=== PATIENT | female | born 1965 | race Caucasian/White ===

== ENCOUNTER 2021-08-16 08:27 | Inpatient (IN) ==
--- NOTE | 2021-08-02 13:08 | PAT Medication Instructions ---
Medication Instructions Date of Service August 02, 2021 Home Medications acetaminophen 500 mg capsule 1,000 mg PO Q6H PRN ascorbic acid (vitamin C) 250 mg tablet (Vitamin C) 250 mg PO QAM baclofen 10 mg tablet 10 mg PO HS cholecalciferol (vitamin D3) 25 mcg (1,000 unit) capsule (Vitamin D3) 25 mcg PO HS coQ10 (ubiquinol) 200 mg capsule 200 mg PO QAM famotidine 20 mg tablet 20 mg PO QAM ibuprofen 200 mg capsule 400 - 600 mg PO Q6H PRN melatonin 5 mg capsule 5 mg PO HS multivitamin 1 tab PO QAM omeprazole 20 mg capsule,delayed release 20 mg PO DAILY PRN oxycodone 10 mg tablet 10 mg PO Q8H PRN topiramate 100 mg tablet (Topamax) 150 mg PO QAM Continue as directed omeprazole 20 mg capsule,delayed release 20 mg PO DAILY PRN (if needed) ASK your surgeon for instructions ibuprofen 200 mg capsule 400 - 600 mg PO Q6H PRN STOP taking 2 weeks before surgery coQ10 (ubiquinol) 200 mg capsule 200 mg PO QAM DO NOT take the morning of surgery ascorbic acid (vitamin C) 250 mg tablet (Vitamin C) 250 mg PO QAM multivitamin 1 tab PO QAM Take morning of surgery With a small sip of water, OTHERWISE NOTHING TO EAT OR DRINK AFTER MIDNIGHT: acetaminophen 500 mg capsule 1,000 mg PO Q6H PRN (okay to take up to 4 hours prior to surgery if needed) famotidine 20 mg tablet 20 mg PO QAM oxycodone 10 mg tablet 10 mg PO Q8H PRN (okay to take up to 4 hours prior to surgery if needed) topiramate 100 mg tablet (Topamax) 150 mg PO QAM Take evening before surgery acetaminophen 500 mg capsule 1,000 mg PO Q6H PRN (if needed) baclofen 10 mg tablet 10 mg PO HS cholecalciferol (vitamin D3) 25 mcg (1,000 unit) capsule (Vitamin D3) 25 mcg PO HS melatonin 5 mg capsule 5 mg PO HS oxycodone 10 mg tablet 10 mg PO Q8H PRN (if needed) Other Notes If you have any questions please call us at [phone] or [phone] or [phone] or [phone]
--- NOTE | 2021-08-03 09:40 | Anesthesiology Consultation ---
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 Wears mask when required. No known Covid positive contacts or Covid related symptoms. No known Covid infection in the past 90 days. Pt is vaccinated for Covid. Preop Covid testing scheduled 08/14/21 = will await results. Educated on importance of self quarantining, social distancing and wearing mask in public for the patient one week prior to surgery and after Covid testing done Teaching & Discussion Pre-Anesthesia Teaching/Discussion Notes: Instructed NPO after midnight before surgery,except medications with 15 cc of water. Medication instructions provided according to the PAT guidelines. History Surgery Operation Date: 08/16/21 09:55 Proposed Procedures p L4-L5 Decompression Fusion Spinal Cord Monitoring - Andres Elam DO Height/Weight Height: 5 ft 1 in Weight: 62.5 kg Allergies Allergy/AdvReac Type Severity Reaction Status Date / Time erythromycin base Allergy Mild rash Verified 07/31/21 11:14 Iodinated Contrast Media Allergy Mild Hives Verified 07/31/21 11:51 ciprofloxacin [From Cipro] Allergy Unknown Hives Verified 07/31/21 11:14 NSAIDS (Non-Steroidal Allergy Unknown STOMACH Verified 07/31/21 11:14 Anti-Inflamma ISSUES Medications Home Medications Medication Instructions Recorded Confirmed Last Taken acetaminophen 500 mg capsule 1,000 mg PO Q6H PRN 07/31/21 07/31/21 Unknown ascorbic acid (vitamin C) 250 mg 250 mg PO QAM 07/31/21 07/31/21 Unknown tablet (Vitamin C) baclofen 10 mg tablet 10 mg PO HS 07/31/21 07/31/21 Unknown cholecalciferol (vitamin D3) 25 25 mcg PO HS 07/31/21 07/31/21 Unknown mcg (1,000 unit) capsule (Vitamin D3) coQ10 (ubiquinol) 200 mg capsule 200 mg PO QAM 07/31/21 07/31/21 Unknown famotidine 20 mg tablet 20 mg PO QAM 07/31/21 07/31/21 Unknown ibuprofen 200 mg capsule 400 - 600 mg PO Q6H PRN 07/31/21 07/31/21 Unknown melatonin 5 mg capsule 5 mg PO HS 07/31/21 07/31/21 Unknown multivitamin 1 tab PO QAM 07/31/21 07/31/21 Unknown omeprazole 20 mg capsule,delayed 20 mg PO DAILY PRN 07/31/21 07/31/21 Unknown release oxycodone 10 mg tablet 10 mg PO Q8H PRN 07/31/21 07/31/21 Unknown topiramate 100 mg tablet (Topamax) 150 mg PO QAM 07/31/21 07/31/21 Unknown Past Medical History Medical History Cancer BASAL CELL-SKIN CANCER S/p removal (Mohns procedure) Chronic back pain GERD (gastroesophageal reflux disease) Not well controlled - uses Pepcid and PPI PRN History of IBS Intermittent flare ups - no current issues Migraine Exercise / Class Metabolic Activity II 4-5 Yardwork/Stairs/Walk up hill (one flight of stairs - no chest pain or SOB ) Past Family History Family History Brother Family history of reaction to anesthesia AGGRESSIVE, COMBATITIVE Past Surgical History Surgical History H/O oophorectomy H/O right knee surgery MULTIPLE History of bilateral tubal ligation History of cholecystectomy History of colonoscopy History of esophagogastroduodenoscopy (EGD) History of herniorrhaphy Past Anesthesia History No Hx of Anesthesia Complications and No Family Hx of Anesthesia Complications (with exception to brother- combative post op ) History of PONV No Hx of PONV and No Hx of Motion Sickness Social History Smoking Status: Current every day smoker Do You Dip or Chew Tobacco: No Smoking End Date: 15-20 CIGS A DAY Hx Alcohol Use: Yes Alcohol type: beer and wine alcohol intake frequency: 0-2 drinks per day (3-5 drinks/day ) Hx Substance Use: No Review of Systems Possible allergy issues- post nasal drip- weather dependent Patient denies chest pain, shortness of breath, dyspnea on exertion, cough, wheezing, palpitations. No hx of seizures, stroke, AL, apnea/snoring. No hx of blood clots or blood transfusions Physical Exam Vital Signs VITALS BP 154/82 P 76 TEMP 98.8 SP02 99% RESP 16 Constitutional no acute distress ENMT Mouth: no TMJ clicking Thyromental Distance: < 3.5 Finger Breadths (3.0) Mallampati Class: III Neck + limited neck extension (significant ) Respiratory normal respiratory effort; no respiratory distress Auscultation: lungs clear to auscultation bilaterally; no wheezes Cardiovascular Rate/Rhythm: regular rate and regular rhythm Heart Sounds: no murmur Vessels: no carotid bruit Musculoskeletal Extremities: extremities normal to inspection Psychiatric Orientation: alert Lab Results Anesthesia Preop Results Results Anesthesia Widget: WBC 5.07 K/uL (4.8-10.8) 08/03/21 Hgb 15.1 g/dL (12.0-16.0) 08/03/21 Hct 42.7 % (37-47) 08/03/21 Plt 275 K/uL (130-400) 08/03/21 Na 136 mmol/L (136-145) 08/03/21 K 4.3 mmol/L (3.5-5.1) 08/03/21 Cl 107 mmol/L (98-107) 08/03/21 CO2 26 mmol/L (21-32) 08/03/21 BUN 11 mg/dl (7-18) 08/03/21 Creat 0.80 mg/dl (0.6-1.2) 08/03/21 Glucose Level 88 mg/dl (70-99) 08/03/21 PT 9.8 Seconds (9.0-12.0) 08/03/21 PTT 26.8 Seconds (21.0-31.0) 08/03/21 INR 1.0 (0.9-1.1) 08/03/21 Urine Color Yellow 08/03/21 Urine Appearance Clear (Clear) 08/03/21 Urine pH 7.5 (4.5-7.5) 08/03/21 Urine Specific [place] 1.004 (1.000-1.030) 08/03/21 Urine Protein Negative (Negative) 08/03/21 Urine Glucose (UA) Negative (Negative) 08/03/21 Urine Ketones Negative (Negative) 08/03/21 Urine Blood Negative (Negative) 08/03/21 Urine Nitrite Negative (Negative) 08/03/21 Urine Bilirubin Negative (Negative) 08/03/21 Urine Urobilinogen Negative (Negative) 08/03/21 Urine Leukocyte Esterase Negative (Negative) 08/03/21 Blood Type O Positive 08/03/21 Antibody Screen NEGATIVE 08/03/21 Testing Electrocardiogram Date: 08/03/21 Findings: + NSR @ (72bpm ) Normal EKG per cardio. Chest X-Ray Date: 08/03/21 Findings: + NAD Emphysematous change with no active disease in the chest.
[~2021-08-16 08:27] MED LIST: ACETAMINOPHEN 500 MG TAB PO SCH; CeleBREX 200 MG CAP PO SCH; DEXAMETHASONE SOD INJ 4 MG/ML VIAL ONE; GABAPENTIN 600 MG DOSE PO SCH; GLYCOPYRROLATE 0.2 MG/ML VIAL ONE; LR 15ML/HR IV SCH; NEOSTIGMINE METHYLSULFATE 1 MG/ML 10ML VIAL ONE; ONDANSETRON INJ 2 MG/ML 2 ML VIAL ONE; PROPOFOL IV EMULSION 10 MG/ML 20 ML VIAL IV ONE; ROCURONIUM BROMIDE 10 MG/ML 5 ML VIAL IV ONE; ceFAZolin 1000MG 1,000 MG/7.5 ML SYR IV SCH; fentaNYL citrate 100 MCG/2 ML VIAL ONE
[2021-08-16] MEDS ORDERED: BUPIVACAINE 0.5 % 5 MG/1 ML MPF 30ML VIAL ONE (09:21)
[2021-08-16] MEDS ORDERED: EPINEPHrine INJ 1 MG/ML AMP ONE (09:21)
--- NOTE | 2021-08-16 09:28 | History & Physical Bridge Note ---
Date of Service August 16, 2021 History & Physical Bridge Note I have examined the patient, reviewed the History & Physical and in the interval since the performance of the History & Physical I have noted the following changes of clinical significance: no changes noted
[2021-08-16] MEDS ORDERED: ATROPINE SULFATE 0.1 MG/ML 10ML SYR IV PRN (09:29)
[2021-08-16] MEDS ORDERED: ePHEDrine sulfate 50 MG/ML AMP IV PRN (09:29)
[2021-08-16] MEDS ORDERED: PROMETHAZINE HCL 6.25 MG in SODIUM CHLORIDE 0.9% 50 ML IV PRN (09:29)
[2021-08-16] MEDS ORDERED: ONDANSETRON INJ 2 MG/ML 2 ML VIAL IV PRN ×2 (09:29→14:17)
--- NOTE | 2021-08-16 09:31 | History & Physical Report ---
Date of Service August 16, 2021 Assessment & Plan (1) Neurogenic claudication due to lumbar spinal stenosis: Plan: L4-L5 decompression fusion History of Present Illness Chief Complaint: Back and bilateral leg pain Primary Care Provider: Nerissa Justin PA-C This is a 56-year-old female presents with current persistent back and bilateral leg pain. Full course of nonoperative care she is here for surgical invention. Allergies Allergy/AdvReac Type Severity Reaction Status Date / Time erythromycin base Allergy Mild rash Verified 08/16/21 08:55 Iodinated Contrast Media Allergy Mild Hives Verified 08/16/21 08:55 ciprofloxacin [From Cipro] Allergy Unknown Hives Verified 08/16/21 08:55 NSAIDS (Non-Steroidal Allergy Unknown STOMACH Verified 08/16/21 08:55 Anti-Inflamma ISSUES Home Medications Medication Instructions Recorded Confirmed Type acetaminophen 500 mg capsule 1,000 mg PO Q6H PRN 07/31/21 08/16/21 History ascorbic acid (vitamin C) 250 mg 250 mg PO QAM 07/31/21 08/16/21 History tablet (Vitamin C) baclofen 10 mg tablet 10 mg PO HS 07/31/21 08/16/21 History cholecalciferol (vitamin D3) 25 25 mcg PO HS 07/31/21 08/16/21 History mcg (1,000 unit) capsule (Vitamin D3) coQ10 (ubiquinol) 200 mg capsule 200 mg PO QAM 07/31/21 08/16/21 History famotidine 20 mg tablet 20 mg PO QAM 07/31/21 08/16/21 History ibuprofen 200 mg capsule 400 - 600 mg PO Q6H PRN 07/31/21 08/16/21 History melatonin 5 mg capsule 5 mg PO HS 07/31/21 08/16/21 History multivitamin 1 tab PO QAM 07/31/21 08/16/21 History omeprazole 20 mg capsule,delayed 20 mg PO DAILY PRN 07/31/21 08/16/21 History release oxycodone 10 mg tablet 10 mg PO Q8H PRN 07/31/21 08/16/21 History topiramate 100 mg tablet (Topamax) 150 mg PO QAM 07/31/21 08/16/21 History Past Med/Surg History Medical History Cancer BASAL CELL-SKIN CANCER S/p removal (Mohns procedure) Chronic back pain GERD (gastroesophageal reflux disease) Not well controlled - uses Pepcid and PPI PRN History of IBS Intermittent flare ups - no current issues Migraine Surgical History H/O oophorectomy H/O right knee surgery MULTIPLE History of bilateral tubal ligation History of cholecystectomy History of colonoscopy History of esophagogastroduodenoscopy (EGD) History of herniorrhaphy Family History Brother Family history of reaction to anesthesia AGGRESSIVE, COMBATITIVE Social History (Updated 07/31/21 @ 11:43 by Chelsie Borja RN) Smoking Status: Current every day smoker Smoking End Date: 15-20 CIGS A DAY; Second Hand Exposure: Yes (PARENTS SMOKED); Do You Dip or Chew Tobacco: No; Hx Alcohol Use: Yes Alcohol type: beer and wine Hx Substance Use: No Preferred Language: German Communication Ability: Effective Senior Principal Required: No Beliefs That Will Affect Care: None Current Living Situation: Spouse current occupational status: employed current occupation: [employer]-(OFF WORK SINCE 05/2021 DUE TO BACK) Other Information That Helps Us Care for You: No Feels Safe at Home: Yes Safety Concerns: Feels Safe At This Time Assistive Devices: Glasses Physical Exam Physical Exam: Patient is alert and oriented Heart regular rhythm Lungs clear to auscultation Results & Data ([facility]) Vital Signs (Past 12 Hours) Vital Signs Temp Pulse Resp BP Pulse Ox 08/16/21 09:00 36.9 C 71 20 154/82 H 98
[2021-08-16] MEDS ORDERED: FLOSEAL HEMOSTATIC MATRIX 10ML TOP ONE (10:48)
--- NOTE | 2021-08-16 11:48 | Operative Report ---
Post Operative Report Pre & Post Diagnosis Operation Date: 08/16/21 09:55 Pre-Op Diagnosis: Lumbar spinal stenosis with neurogenic claudication Lumbar spondylolisthesis Post-Op Diagnosis: Same I identified the patient and participated in the time-out.: Yes Procedure Operation Date: 08/16/21 09:55 Actual Procedures #1 lumbar decompression with bilateral medial facetectomies and foraminotomies L3-4 and L4-5 per #2 posterior spinal fusion L4-5 per #3 placement posterior instrumentation L4-5 per #4 interbody fusion L4-5 per #5 placement peek cage 12 x 22 mm at L4-5. #6 placement locally harvested morselized autograft in the posterior gutters. #7 placement infuse collagen sponge combined with Vitoss in the interbody space and posterior lateral gutters. Surgeon Andres Elam, Voice Writing Reporter [facility] Estimated Blood Loss 150 Findings Consistent with Post-Op Diagnosis Specimens None Indications This is a 56-year-old female presents above-mentioned diagnosis at the course of nonoperative care is here for the procedure. Description of Procedure Patient was met with identified informed consent obtained. Patient was then taken to the operative suite underwent a patient placed in a prone position on a Mao table top Wes frame. All bony prominences well-padded eyes inspected to ensure no external pressure placed upon the. This point lumbar spine was prepped and draped in a sterile fashion. Sharp dissection with the assistance of Bovie cautery was performed down to and exposing the lamina and transverse processes of L4 and L5 bilaterally. From caudal cephalad fashion complete laminectomy of L4 and partial laminectomy of L3 was performed including dre ateral medial facetectomies and foraminotomies addressing severe spinal stenosis. Pedicle screws were then placed in L4-L5 bilaterally with assistance of fluoroscopy and appropriate sized carlos placed. By way of a transforaminal approach and left complete discectomy of L4-5 was performed endplates curetted to subcortical being bone and a 12 x 22 mm peek cage filled with I factor tapped in position. The rods then compressed locked in final position bilaterally. The transverse processes of L4 and L5 burred to subcortical bleeding bone. I factor combined with Vitoss and locally harvested morselized autograft was then placed in the posterior gutters. 15 round LETTY drain inserted. Incision was then closed with 1 Vicryl the fascia 2-0 Vicryl subcutaneously and 4 Monocryl for final skin closure. Steri-Strip sterile dressings placed. Patient waken taken to PACU stable condition. Please note spinal cord monitoring was utilized at the procedure no changes noted. Lastly [facility] Olmstead was present at the entire surgeon while the patient positioning complex portions of the surgery and final skin closure. I attest to the content of the Intraoperative Record and any orders documented therein. Any exceptions are noted below.
[2021-08-16] MEDS: fentaNYL citrate 100 MCG/2 ML VIAL IV PRN ×2 (12:09→12:14)
[2021-08-16] MEDS: HYDROmorphone INJ 1 MG/ML SYRINGE IV PRN ×5 (12:19→23:20)
[2021-08-16] MEDS ORDERED: ONDANSETRON 4 MG OD TAB PO PRN (14:17)
[2021-08-16] MEDS ORDERED: hydrOXYzine HCl 25 MG TAB PO PRN (14:17)
[2021-08-16] MEDS ORDERED: HYDROmorphone INJ 0.5 MG/0.5 ML SYR IV PRN (14:17)
[2021-08-16] MEDS ORDERED: METOCLOPRAMIDE HCL INJ 5 MG/ML 2 ML VIAL IV PRN (14:17)
[2021-08-16] MEDS ORDERED: ALUMINUM/MAGNESIUM SUSP 30 ML UDC PO PRN (14:17)
[2021-08-16] MEDS ORDERED: MAGNESIUM HYDROXIDE SUSP 30 ML UDC PO PRN (14:17)
[2021-08-16] MEDS ORDERED: PROMETHAZINE HCL 12.5 MG in SODIUM CHLORIDE 0.9% 50 ML IV PRN (14:17)
[2021-08-16] MEDS ORDERED: LORazepam 0.5 MG/1 ML VIAL IV PRN (14:17)
[2021-08-16] MEDS ORDERED: bisacodyL 10 MG SUPP PR PRN (14:17)
[2021-08-16] MEDS ORDERED: SOD PHOSPHATE/SOD BIPHOSPHATE ENEMA 132 ML BTL PR PRN (14:17)
[2021-08-16] MEDS ORDERED: traMADol HCL 50 MG TABLET PO PRN (14:17)
[2021-08-16] MEDS ORDERED: ACETAMINOPHEN 1,000 MG/100 ML VIAL IV PRN (14:17)
[2021-08-16] MEDS ORDERED: FAMOTIDINE 20 MG TAB PO PRN (14:17)
[2021-08-16] MEDS ORDERED: DO NOT ADMINISTER PNEUMOCOCCAL VACCINE PRN (14:17)
[2021-08-16] MEDS ORDERED: ACETAMINOPHEN 500 MG TAB PO PRN (14:17)
[2021-08-16] MEDS ORDERED: DO NOT ADMINISTER FLU VACCINE PRN (14:17)
[2021-08-16] MEDS ORDERED: diphenhydrAMINE Capsule 25 MG CAP PO PRN (14:17)
[2021-08-16] MEDS ORDERED: LORazepam 0.5 MG TAB PO PRN (14:17)
[2021-08-16] MEDS ORDERED: NALOXONE HCL 0.4 MG/1 ML VIAL/CARP IV PRN (14:17)
[2021-08-16] MEDS ORDERED: MELATONIN 3 MG TAB PO PRN (14:25)
[2021-08-16] MEDS ORDERED: PANTOprazole 40 MG TAB PO PRN (14:26)
[2021-08-16] MEDS: LACTATED RINGER'S 1,000 ML IV SCH (14:56)
[2021-08-16] MEDS: oxyCODONE HCL IR 5 MG TAB (IMMEDIATE RELEASE) PO PRN (14:56)
--- NOTE | 2021-08-16 15:04 | Consultation ---
Date of Consultation August 16, 2021 Assessment & Plan (1) Neurogenic claudication due to lumbar spinal stenosis: Status post L4-L5 lumbar decompression fusion by Dr. Elam, POD #0 EBL 150 mL; LETTY drain 170 mL Tolerated procedure well Pain/wound management per orthopedics Activity and therapy as directed by orthopedics Encourage incentive spirometry Monitor hemoglobin, preop 15.1 Alcohol abuse Patient admits to in taking 5-6 light beers nightly since May Last drink was last evening AWSS as per protocol, as needed IV Ativan, oral thiamine and folic acid Tobacco abuse smoking cessation encouraged declines nicotine patch at this point Migraine continue topamax no current VAZQUEZ Gerd continue PPI and pepcid Dispo: per primary PCP: Nerissa Justin PA-C FULL CODE Pt was seen and examined in collaboration with Dr. Escobar, please see addendum Thank you for this consultation. We will follow the patient with you during their hospital stay. You can reach a member of the [facility] Hospitalist Team 24/06 via hospitalist role on tiger text. (2) Alcohol abuse: (3) Post-operative state: (4) Tobacco use: Supervising Physician Co-Signing Physician Notes I have seen and examined the patient and have discussed the case with the provider above. I agree with the assessment and plan as stated. 56-year-old female with chronic lower back pain status post L4-L5 decompression with fusion by Dr. Elam today. She was up and walking to the bathroom and is reporting some expected pain. She confirms drinking 5-6 alcoholic drinks daily. We discussed symptoms of alcohol withdrawal and treatments available to her if she were to experience her symptoms. She verbalized understanding. Physical exam as above. Agree with plan as above. Thank you for this consultation. DO Shawn History of Present Illness Requesting Physician: Dr. Elam Reason for Consultation: Post op medical management Attending Physician: Andres Elam DO History of Present Illness This is a 56-year-old female who has significant past medical history of migraine, tobacco use, alcohol abuse, diastolic dysfunction, GERD, lumbar spinal stenosis who presents for elective lumbar procedure by Dr. Elam. She underwent L4-L5 decompression fusion and tolerated procedure well. She currently complains of incisional back pain as well as pain to her right leg. Prior to surgery she felt she had to constantly move to get comfortable. She continues to feel this way, although somewhat improved. She denies any fever, chills, sweats, lightheadedness, dizziness, chest pain, shortness breath, cough, nausea, vomiting, abdominal pain. Of significance she does have history of migraine which is controlled with Topamax. She also admits to significant alcohol use since May due to back pain. She states she used alcohol to help calm her. She admits to approximately 5-6 alcoholic beverages/light beers nightly. Her last drink was last evening. Allergies Allergy/AdvReac Type Severity Reaction Status Date / Time erythromycin base Allergy Mild rash Verified 08/16/21 08:55 Iodinated Contrast Media Allergy Mild Hives Verified 08/16/21 08:55 ciprofloxacin [From Cipro] Allergy Unknown Hives Verified 08/16/21 08:55 NSAIDS (Non-Steroidal Allergy Unknown STOMACH Verified 08/16/21 08:55 Anti-Inflamma ISSUES Home Medications Medication Instructions Recorded Confirmed Type acetaminophen 500 mg capsule 1,000 mg PO Q6H PRN 07/31/21 08/16/21 History ascorbic acid (vitamin C) 250 mg 250 mg PO QAM 07/31/21 08/16/21 History tablet (Vitamin C) baclofen 10 mg tablet 10 mg PO HS 07/31/21 08/16/21 History cholecalciferol (vitamin D3) 25 25 mcg PO HS 07/31/21 08/16/21 History mcg (1,000 unit) capsule (Vitamin D3) coQ10 (ubiquinol) 200 mg capsule 200 mg PO QAM 07/31/21 08/16/21 History famotidine 20 mg tablet 20 mg PO QAM 07/31/21 08/16/21 History ibuprofen 200 mg capsule 400 - 600 mg PO Q6H PRN 07/31/21 08/16/21 History melatonin 5 mg capsule 5 mg PO HS 07/31/21 08/16/21 History multivitamin 1 tab PO QAM 07/31/21 08/16/21 History omeprazole 20 mg capsule,delayed 20 mg PO DAILY PRN 07/31/21 08/16/21 History release oxycodone 10 mg tablet 10 mg PO Q8H PRN 07/31/21 08/16/21 History topiramate 100 mg tablet (Topamax) 150 mg PO QAM 07/31/21 08/16/21 History Patient History Medical History Cancer BASAL CELL-SKIN CANCER S/p removal (Mohns procedure) Chronic back pain GERD (gastroesophageal reflux disease) Not well controlled - uses Pepcid and PPI PRN History of IBS Intermittent flare ups - no current issues Migraine Surgical History H/O oophorectomy H/O right knee surgery MULTIPLE History of bilateral tubal ligation History of cholecystectomy History of colonoscopy History of esophagogastroduodenoscopy (EGD) History of herniorrhaphy Family History Brother Family history of reaction to anesthesia AGGRESSIVE, COMBATITIVE Father Stomach cancer Coronary heart disease Hx of CABG Mother Hx of CABG Heart disease Social History (Updated 08/16/21 @ 15:22 by Carrie Lunsford PA-C) Smoking Status: Current every day smoker Smoking End Date: 15-20 CIGS A DAY; Second Hand Exposure: Yes (PARENTS SMOKED); Do You Dip or Chew Tobacco: No; Hx Alcohol Use: Yes Alcohol type: beer and wine Alcohol type Comment: Beer Alcohol Intake Frequency Comment: 5-6 nightly since May Hx Substance Use: No Preferred Language: Khmer Communication Ability: Effective Law Writer Required: No Beliefs That Will Affect Care: None Current Living Situation: Spouse current occupational status: employed current occupation: [employer]-(OFF WORK SINCE 05/2021 DUE TO BACK) Other Information That Helps Us Care for You: No Feels Safe at Home: Yes Safety Concerns: Feels Safe At This Time Assistive Devices: Walker Review of Systems Review of Systems: All systems reviewed & are unremarkable except as noted in HPI & below Physical Exam Physical Exam: Constitutional: WD/WN, vitals as above, NAD, sitting up in bed, pleasant, conversing easily Head: Normocephalic, Atraumatic Eyes: PERRL, conjunctivae normal, anicteric sclerae ENMT: external ear and nose normal, oropharynx normal Neck: trachea midline, no thyromegaly normal visual inspection Respiratory: normal respiratory effort, lungs clear to auscultation, no wheeze, rales, rhonchi. Normal insp/exp effort, no accessory muscle use Cardiovascular: RRR, no murmur, no edema Vessels: no JVD or carotid bruit Chest: normal inspection of chest Abdomen: normal bowel sounds, soft, nontender, no hepatosplenomegaly Musculoskeletal: no cyanosis or clubbing, extremity active range of motion x4, strength 5 out of 5, lumbar dressing CDI, LETTY drain with serosanguineous drainage Skin: no rashes, warm and dry normal turgor Neurologic: PERRL, EOMI, accommodation nl, no face palsy, no dysarthria CN's II-XI intact bilaterally and moves all extremities Psychiatric: A+Ox3, euthymic affect Lymphatic: no cervical or axillary lymphadenopathy : deferred Results & Data ([facility]) Vital Signs (Past 12 Hours) Vital Signs Temp Pulse Pulse Pulse Resp BP BP 08/16/21 14:44 36.4 C L 67 18 133/81 08/16/21 14:15 36.4 C L 71 17 133/85 08/16/21 14:09 36.4 C L 70 16 145/80 H 08/16/21 13:30 78 19 121/59 L 08/16/21 13:20 87 16 127/75 08/16/21 13:10 61 18 110/61 08/16/21 13:00 75 18 136/81 08/16/21 12:50 36.4 C L 61 20 142/79 H 08/16/21 12:40 58 L 20 133/79 08/16/21 12:30 36.2 C L 69 14 141/75 H 08/16/21 12:20 61 12 135/57 L 08/16/21 12:10 60 20 153/86 H 08/16/21 12:02 36.0 C L 77 12 167/77 H 08/16/21 09:00 36.9 C 71 20 154/82 H Pulse Ox 08/16/21 14:44 97 08/16/21 14:15 96 08/16/21 14:09 95 08/16/21 13:30 94 08/16/21 13:20 94 08/16/21 13:10 99 08/16/21 13:00 98 08/16/21 12:50 96 08/16/21 12:40 100 08/16/21 12:30 95 08/16/21 12:20 100 08/16/21 12:10 100 08/16/21 12:02 100 08/16/21 09:00 98 Laboratory Results Preop lab work on 08/03/2021 3 BC 5.07, H&H 15.1 and 42.7, platelet 275 Sodium 136, K4.3, chloride 107, BUN 19, creatinine 0.8 Urinalysis negative Diagnostic Findings Lumbar Spine X-Ray 08/16/21 09:55 FL lumbar spine 2-3V CLINICAL HISTORY: L4-5 DFI COMPARISON STUDY: None. FLUOROSCOPY TIME: 18 seconds. FLUOROSCOPIC IMAGES: 2 FINDINGS: Fluoroscopy was provided during L4-L5 discectomy, posterior decompress ion and bilateral pedicle screw fusion. Hardware is intact. IMPRESSION: Fluoroscopy provided during L4-L5 discectomy, posterior decompression and bilateral pedicle screw fusion. ACT 112: Negative or not required by law. Electronically signed by: Angelo Ponce M.D. 08/16/2021 3:27 PM Medications Administered Medication List Acetaminophen (Acetaminophen 500 Mg Tab) 1,000 mg PO PREOP JUN Stop: 08/16/21 18:00 Last Admin: 08/16/21 09:14 Dose: 1,000 mg Documented by: [id number] Celecoxib (Celebrex 200 Mg Cap) 200 mg PO PREOP JUN Stop: 08/16/21 18:00 Last Admin: 08/16/21 09:15 Dose: Not Given Documented by: [id number] Fentanyl Citrate (Fentanyl Citrate 100 Mcg/2 Ml Vial) 25 mcg IV Q5M PRN PRN Reason: PACU Use Only-Pain Stop: 08/16/21 17:29 Last Admin: 08/16/21 12:14 Dose: 50 mcg Documented by: [id number] Admin: 08/16/21 12:09 Dose: 50 mcg Documented by: [id number] Gabapentin (Gabapentin 600 Mg Dose) 600 mg PO PREOP JUN Stop: 08/16/21 18:00 Last Admin: 08/16/21 09:14 Dose: 600 mg Documented by: [id number] Hydromorphone HCl (Hydromorphone Inj 1 Mg/Ml Syringe) 0.25 mg IV Q5M PRN PRN Reason: PACU Use Only-Pain Stop: 08/16/21 17:29 Last Admin: 08/16/21 12:45 Dose: 0.25 mg Documented by: [id number] Admin: 08/16/21 12:24 Dose: 0.5 mg Documented by: [id number] Admin: 08/16/21 12:19 Dose: 0.5 mg Documented by: [id number] Lactated Ringer's (Lr) 1,000 mls @ 15 mls/hr IV .Q24H JUN Stop: 08/17/21 05:59 Last Infusion: 08/16/21 09:52 Dose: 15 mls/hr Documented by: [id number] Admin: 08/16/21 09:14 Dose: 15 mls/hr Documented by: [id number] Cefazolin Sodium (Ancef 1000mg) 1,000 mg in 7.5 mls @ 2.5 mls/min IV PREOP JUN; Protocol Stop: 08/16/21 18:00 Last Admin: 08/16/21 10:12 Dose: 2.5 mls/min Documented by: [id number] Lactated Ringer's (Lr) 1,000 mls @ 100 mls/hr IV .Q10H JUN Stop: 09/15/21 14:16 Last Admin: 08/16/21 14:56 Dose: 100 mls/hr Documented by: [id number] Oxycodone HCl (Oxycodone Hcl Ir 5 Mg Tab (Immediate Release)) 5 - 10 mg PO Q4H PRN PRN Reason: Pain & Pre PT Stop: 08/30/21 14:16 Last Admin: 08/16/21 14:56 Dose: 10 mg Documented by: [id number] Discontinued Medications Bupivacaine HCl (Bupivacaine 0.5 % 5 Mg/1 Ml Mpf 30ml Vial) Confirm Administered Dose 30 ml .ROUTE .STK-MED ONE Stop: 08/16/21 09:22 Last Admin: 08/16/21 10:51 Dose: 25 ml Documented by: [id number] Cefazolin Sodium (Cefazolin 250 Mg/Ml 1 Gm Vial) Confirm Administered Dose 1,000 mg .ROUTE .STK-MED ONE Stop: 08/16/21 09:22 Last Admin: 08/16/21 10:53 Dose: 1,000 mg Documented by: [id number] Epinephrine HCl (Epinephrine Inj 1 Mg/Ml Amp) Confirm Administered Dose 1 mg .ROUTE .STK-MED ONE Stop: 08/16/21 09:22 Last Admin: 08/16/21 10:52 Dose: 0.15 mg Documented by: [id number] Miscellaneous ( Floseal Hemostatic Matrix 10ml) 10 ml TOP ONCE ONE Stop: 08/16/21 10:49 Last Admin: 08/16/21 12:03 Dose: 20 ml Documented by: [id number] ECG Rate (beats per minute): 72 Rhythm: normal sinus
--- NOTE | 2021-08-16 15:07 | Anesthesiology Progress Note ---
Date of Service August 16, 2021 Anesthesia Post Procedure Vital Signs Vital Signs: Temp Pulse Pulse Pulse Resp BP BP 08/16/21 14:44 36.4 C L 67 18 133/81 08/16/21 14:15 36.4 C L 71 17 133/85 08/16/21 14:09 36.4 C L 70 16 145/80 H 08/16/21 13:30 78 19 121/59 L 08/16/21 13:20 87 16 127/75 08/16/21 13:10 61 18 110/61 08/16/21 13:00 75 18 136/81 08/16/21 12:50 36.4 C L 61 20 142/79 H 08/16/21 12:40 58 L 20 133/79 08/16/21 12:30 36.2 C L 69 14 141/75 H 08/16/21 12:20 61 12 135/57 L 08/16/21 12:10 60 20 153/86 H 08/16/21 12:02 36.0 C L 77 12 167/77 H 08/16/21 09:00 36.9 C 71 20 154/82 H Pulse Ox 08/16/21 14:44 97 08/16/21 14:15 96 08/16/21 14:09 95 08/16/21 13:30 94 08/16/21 13:20 94 08/16/21 13:10 99 08/16/21 13:00 98 08/16/21 12:50 96 08/16/21 12:40 100 08/16/21 12:30 95 08/16/21 12:20 100 08/16/21 12:10 100 08/16/21 12:02 100 08/16/21 09:00 98 Pain Intensity Lower Back: Pain Intensity: 6 Transfer of Care Handoff Completed per policy Notes Mental Status: alert / awake / arousable and participated in evaluation Patient Amnestic to Procedure: Yes Nausea / Vomiting: adequately controlled Pain: adequately controlled Airway Patency, RR, SpO2: stable & adequate BP & HR: stable & adequate Hydration State: stable & adequate Anesthetic Complications: no major complications apparent and Pt Satisfied with anesthetic care
--- NOTE | 2021-08-16 15:28 | Fluoroscopy Report ---
FL lumbar spine 2-3V CLINICAL HISTORY: L4-5 DFI COMPARISON STUDY: None. FLUOROSCOPY TIME: 18 seconds. FLUOROSCOPIC IMAGES: 2 FINDINGS: Fluoroscopy was provided during L4-L5 discectomy, posterior decompression and bilateral ped icle screw fusion. Hardware is intact. IMPRESSION: Fluoroscopy provided during L4-L5 discectomy, posterior decompression and bilateral pedi german screw fusion. ACT 112: Negative or not required by law. Electronically signed by: Angelo Ponce M.D. 08/16/2021 3:27 PM
[2021-08-16] MEDS ORDERED: LORazepam 1 MG/2 ML VIAL IV PRN (15:57)
[2021-08-16] MEDS: FOLIC ACID 1 MG TAB PO SCH (16:54)
[2021-08-16] MEDS: THIAMINE HCL 100 MG TAB PO SCH (16:54)
[2021-08-16] MEDS: ceFAZolin 1000MG 1,000 MG/7.5 ML SYR IV SCH (17:03)
[2021-08-16] MEDS: DOCUSATE SODIUM/SENNA 50/8.6MG TAB PO SCH (20:59)
[2021-08-16] MEDS: BACLOFEN 10 MG TAB PO SCH (20:59)
[2021-08-16] MEDS: CHOLECALCIFEROL 1,000 UNITS 25 MCG TAB PO SCH (20:59)
[2021-08-17] MEDS: ceFAZolin 1000MG 1,000 MG/7.5 ML SYR IV SCH (01:03)
[2021-08-17] MEDS: LACTATED RINGER'S 1,000 ML IV SCH (01:03)
[2021-08-17] MEDS: HYDROmorphone INJ 1 MG/ML SYRINGE IV PRN ×2 (02:14→07:47)
[2021-08-17] MEDS: oxyCODONE HCL IR 5 MG TAB (IMMEDIATE RELEASE) PO PRN ×4 (04:43→20:18)
[2021-08-17] MEDS: POLYETHYLENE (MIRALAX) 17 GM PACK PO SCH ×3 (04:43→18:00)
--- NOTE | 2021-08-17 08:02 | Hospitalist Progress Note ---
Date of Service August 17, 2021 Assessment & Plan (1) Neurogenic claudication due to lumbar spinal stenosis: Plan: Status post L4-L5 lumbar decompression fusion by Dr. Elam, POD #1 Tolerated procedure well Pain/wound management per orthopedics Activity and therapy as directed by orthopedics Encourage incentive spirometry Post op blood loss anemia Hgb 11.3 today (preop 15.1, EBL 150ml) Denies lightheadedness, CP or SOB Continue to monitor CBC, transfuse for hgb <8 Alcohol abuse Patient admits to in taking 5-6 light beers nightly since May No signs or symptoms of withdrawal thus far AWSS as per protocol, as needed IV Ativan, oral thiamine and folic acid Tobacco abuse smoking cessation encouraged declines nicotine patch at this point Migraine continue Topamax no current VAZQUEZ GERD continue PPI and Pepcid Dispo: per primary PCP: Nerissa Justin PA-C FULL CODE Patient was seen and examined in collaboration with Dr. Escobar, please see addendum Thank you for this consultation. We will follow the patient with you during their hospital stay. You can reach a member of the [facility] Hospitalist Team 24/06 via hospitalist role on tiger text. (2) Alcohol abuse: (3) Post-operative state: (4) Tobacco use: Plan: I have seen and examined the patient and have discussed the case with the provider above. I agree with the assessment and plan as stated. Pt is sleep deprived and in pain today. This is not a good day. Pain has been treated to her satisfaction. Cont to rest for now. Ambulate per Dr. Elam. Supportive care ass needed. Drain in place with serosanguinous fluid, incision site not evaluated but dressing is c/d/i. NAD, normal cardiac and pulmonary evaluations. Cont care plan above. DO Shawn Admission and Anticipated Discharge Date Admission Date: August 16, 2021 Subjective Patient seen and examined in 322-1. Pain controlled on IV pain medication. Denies pain or paresthesias in BLE. Denies fever, chills, lightheadedness, CP, SOB, nausea, vomiting, abdominal pain, dysuria. Not passing flatus yet. Review of Systems Review of Systems: At least ten systems reviewed and negative except as noted in the HPI. Physical Exam Physical Exam: General Appearance: WD/WN, vitals as above, NAD, sitting up in bed, pleasant, conversing easily Head: normocephalic, atraumatic Eyes: normal inspection, PERRL, conjunctivae normal, anicteric sclerae ENT: external ear and nose normal, oropharynx normal Neck: normal visual inspection, trachea midline, no thyromegaly Respiratory: normal respiratory effort, lungs clear to auscultation, no wheeze, rales, rhonchi. No accessory muscle use Cardiovascular: regular rate, rhythm, no murmur, normal peripheral pulses, no BLE edema. Vessels: no JVD Abdomen/GI: normal bowel sounds, soft, nontender, no hepatosplenomegaly Extremities/Musculoskeletal: Spinal dressing c/d/i. LETTY drain with minimal output. No cyanosis or clubbing, extremities motor strength 5/5 Neurologic: PERRL, CN's II-XI intact bilaterally and moves all extremities Psychiatric: A+Ox3, euthymic affect Skin: no rashes, normal color, warm/dry Results & Data Results & Data ([facility]) Vital Signs (Past 12 Hours) Vital Signs Temp Pulse Pulse Resp BP Pulse Ox 08/17/21 03:00 64 16 112/68 98 08/16/21 23:36 37.0 C 79 16 108/68 97 Laboratory Results Short CBC 08/17/21 Range/Units 07:11 WBC 6.90 (4.8-10.8) K/uL Hgb 11.3 L (12.0-16.0) g/dL Hct 32.9 L (37-47) % Plt Count 215 (130-400) K/uL BMP 08/17/21 07:11 Sodium 139 Potassium 3.7 Chloride 106 Carbon Dioxide 28 BUN 6 L Creatinine 0.76 Glucose 98 Calcium 8.8 Diagnostic Findings Lumbar Spine X-Ray 08/16/21 09:55 FL lumbar spine 2-3V CLINICAL HISTORY: L4-5 DFI COMPARISON STUDY: None. FLUOROSCOPY TIME: 18 seconds. FLUOROSCOPIC IMAGES: 2 FINDINGS: Fluoroscopy was provided during L4-L5 discectomy, posterior decompression and bilateral pedicle screw fusion. Hardware is intact. IMPRESSION: Fluoroscopy provided during L4-L5 discectomy, posterior decompression and bilateral pedicle screw fusion. ACT 112: Negative or not required by law. Electronically signed by: Angelo Ponce M.D. 08/16/2021 3:27 PM
[2021-08-17 08:16] LABS: Basophils # (auto) 0.01 K/uL (0-0.2); Basophils % (auto) 0.1 %; Eosinophils # (auto) 0.03 K/uL (0-0.5); Eosinophils % (auto) 0.4 %; Hematocrit (blood only) 32.9 % (37-47); Hemoglobin 11.3 g/dL (12.0-16.0); Immature Granulocytes # (auto) 0.02 K/uL (0.00-0.02); Immature Granulocytes % (auto) 0.3 %; Lymphocytes # (auto) 1.67 K/uL (1.2-3.4); Lymphocytes % (auto) 24.2 %; Mean Corpuscular Hemoglobin 31.5 pg (25-34); Mean Corpuscular Hgb Conc 34.3 g/dL (32-36); Mean Corpuscular Volume 91.6 fL (80-100); Mean Platelet Volume 9.4 fL (7.4-10.4); Monocytes # (auto) 0.83 K/uL (0.11-0.59); Neutrophils # (auto) 4.34 K/uL (1.4-6.5); Platelet Count 215 K/uL (130-400); RDW Coefficient of Variation 12.9 % (11.5-14.5); RDW Standard Deviation 43.4 fL (36.4-46.3); Red Blood Count 3.59 M/uL (4.2-5.4)
--- NOTE | 2021-08-17 08:24 | Orthopedic Progress Note ---
Date of Service August 17, 2021 Assessment & Plan (1) Neurogenic claudication due to lumbar spinal stenosis: Plan: This time we will continue physical therapy monitor LETTY operatively discharge home in next few days. Admission and Anticipated Discharge Date Admission Date: August 16, 2021 Subjective Patient's back pain is controlled leg symptoms improved Physical Exam Physical Exam: Patient is good strength testing appears comfortable. Results & Data ([facility]) Vital Signs (Past 12 Hours) Vital Signs Temp Pulse Pulse Pulse Resp BP BP 08/17/21 07:50 37.4 C 88 20 115/72 08/17/21 03:00 64 16 112/68 08/16/21 23:36 37.0 C 79 16 108/68 Pulse Ox 08/17/21 07:50 96 08/17/21 03:00 98 08/16/21 23:36 97
[2021-08-17] MEDS: TOPIRAMATE 50 MG TAB PO SCH (08:34)
[2021-08-17] MEDS: FOLIC ACID 1 MG TAB PO SCH (08:35)
[2021-08-17] MEDS: FAMOTIDINE 20 MG TAB PO SCH (08:35)
[2021-08-17] MEDS: MULTIVITAMIN TAB PO SCH (08:35)
[2021-08-17] MEDS: THIAMINE HCL 100 MG TAB PO SCH (08:39)
[2021-08-17 08:45] LABS: BUN Creatinine Ratio 8.3 (10-20); Calcium 8.8 mg/dl (8.5-10.1); Creatinine Clr Calc Pharmacy 66.4 ml/min; Est GFR (African American) 100.9 ml/min; Est GFR (Non-African American) 87.1 ml/min; Potassium 3.7 mmol/L (3.5-5.1)
[2021-08-17] MEDS ORDERED: NON-FORMULARY MEDICATION (Coq10 (Ubiquinol) 200 mg Capsule) PO SCH (09:00)
[2021-08-17] MEDS: BACLOFEN 10 MG TAB PO SCH (20:18)
[2021-08-17] MEDS: CHOLECALCIFEROL 1,000 UNITS 25 MCG TAB PO SCH (20:18)
[2021-08-17] MEDS: DOCUSATE SODIUM/SENNA 50/8.6MG TAB PO SCH (20:22)
[2021-08-18] MEDS: oxyCODONE HCL IR 5 MG TAB (IMMEDIATE RELEASE) PO PRN ×3 (00:14→12:36)
[2021-08-18] MEDS: POLYETHYLENE (MIRALAX) 17 GM PACK PO SCH ×3 (00:15→12:37)
[2021-08-18] MEDS: MULTIVITAMIN TAB PO SCH (07:50)
[2021-08-18] MEDS: TOPIRAMATE 50 MG TAB PO SCH (07:51)
[2021-08-18] MEDS: FAMOTIDINE 20 MG TAB PO SCH (07:51)
[2021-08-18] MEDS: FOLIC ACID 1 MG TAB PO SCH (07:51)
[2021-08-18] MEDS: THIAMINE HCL 100 MG TAB PO SCH (07:52)
[2021-08-18 07:55] LABS: Hematocrit (blood only) 35.5 % (37-47); Hemoglobin 12.1 g/dL (12.0-16.0); Mean Corpuscular Hemoglobin 31.7 pg (25-34); Mean Corpuscular Hgb Conc 34.1 g/dL (32-36); Mean Corpuscular Volume 92.9 fL (80-100); Mean Platelet Volume 9.9 fL (7.4-10.4); Platelet Count 262 K/uL (130-400); RDW Coefficient of Variation 12.9 % (11.5-14.5); RDW Standard Deviation 43.8 fL (36.4-46.3); Red Blood Count 3.82 M/uL (4.2-5.4); White Blood Count 10.04 K/uL (4.8-10.8)
[2021-08-18 08:25] LABS: BUN Creatinine Ratio 12.4 (10-20); Calcium 9.1 mg/dl (8.5-10.1); Creatinine Clr Calc Pharmacy 63.9 ml/min; Est GFR (African American) 96.3 ml/min; Est GFR (Non-African American) 83.1 ml/min; Potassium 3.9 mmol/L (3.5-5.1)
--- NOTE | 2021-08-18 10:52 | Hospitalist Progress Note ---
Date of Service August 18, 2021 Assessment & Plan (1) Neurogenic claudication due to lumbar spinal stenosis: Plan: Status post L4-L5 lumbar decompression fusion by Dr. Elam, POD #2 Tolerated procedure well Pain/wound management per orthopedics Activity and therapy as directed by orthopedics Encourage incentive spirometry Post op blood loss anemia Hgb 12.1 today (hgb 11.3 yesterday, preop 15.1) Denies lightheadedness, CP or SOB Continue to monitor CBC, transfuse for hgb <8 Alcohol abuse Patient admits to in taking 5-6 light beers nightly since May AW as per protocol, as needed IV Ativan, oral thiamine and folic acid No signs or symptoms of withdrawal thus far Tobacco abuse smoking cessation encouraged declines nicotine patch at this point Migraine continue Topamax no current VAZQUEZ GERD continue PPI and Pepcid Dispo: per primary PCP: Nerissa Justin PA-C FULL CODE Patient was seen and examined in collaboration with Dr. Escobar, please see addendum Thank you for this consultation. We will follow the patient with you during their hospital stay. You can reach a member of the [facility] Hospitalist Team 24/06 via hospitalist role on tiger text. (2) Alcohol abuse: (3) Post-operative state: (4) Tobacco use: Admission and Anticipated Discharge Date Admission Date: August 16, 2021 Supervising Physician Co-Signing Physician Notes I have seen and examined the patient and have discussed the case with the provider above. I agree with the assessment and plan as stated. Pt is doing well, excited about going home later today. We discussed caution with narcotics. Physical exam as above. Follow-up with orthopedics as instructed. Thank you for this consultation. DO Shawn Subjective Patient seen and examined in 322-1. Just completed PT and was able to ambulate halls and stairs. Some surgical site pain. Denies pain or paresthesias in BLE. Tolerating diet without issue. Denies fever, chills, lightheadedness, CP, SOB, nausea, vomiting, abdominal pain, dysuria. Had bowel movement this morning. Review of Systems Review of Systems: At least ten systems reviewed and negative except as noted in the HPI. Physical Exam Physical Exam: General Appearance: WD/WN, vitals as above, NAD, sitting up in bed, pleasant, conversing easily Head: normocephalic, atraumatic Eyes: normal inspection, PERRL, conjunctivae normal, anicteric sclerae ENT: external ear and nose normal, oropharynx normal Neck: normal visual inspection, trachea midline, no thyromegaly Respiratory: normal respiratory effort, lungs clear to auscultation, no wheeze, rales, rhonchi. No accessory muscle use Cardiovascular: regular rate, rhythm, no murmur, normal peripheral pulses, no BLE edema. Vessels: no JVD Abdomen/GI: normal bowel sounds, soft, nontender, no hepatosplenomegaly Extremities/Musculoskeletal: Spinal dressing c/d/i. LETTY drain with minimal output. No cyanosis or clubbing, extremities motor strength 5/5 Neurologic: PERRL, CN's II-XI intact bilaterally and moves all extremities Psychiatric: A+Ox3, euthymic affect Skin: no rashes, normal color, warm/dry Results & Data Results & Data ([facility]) Vital Signs (Past 12 Hours) Vital Signs Temp Pulse Resp BP Pulse Ox 08/18/21 06:12 36.8 C 95 H 17 105/70 97 Laboratory Results Short CBC 08/18/21 Range/Units 06:49 WBC 10.04 (4.8-10.8) K/uL Hgb 12.1 (12.0-16.0) g/dL Hct 35.5 L (37-47) % Plt Count 262 (130-400) K/uL BMP 08/18/21 06:49 Sodium 137 Potassium 3.9 Chloride 104 Carbon Dioxide 25 BUN 10 Creatinine 0.79 Glucose 128 H Calcium 9.1 Diagnostic Findings Lumbar Spine X-Ray 08/16/21 09:55 FL lumbar spine 2-3V CLINICAL HISTORY: L4-5 DFI COMPARISON STUDY: None. FLUOROSCOPY TIME: 18 seconds. FLUOROSCOPIC IMAGES: 2 FINDINGS: Fluoroscopy was provided during L4-L5 discectomy, posterior decompression and bilateral pedicle screw fusion. Hardware is intact. IMPRESSION: Fluoroscopy provided during L4-L5 discectomy, posterior decompression and bilateral pedicle screw fusion. ACT 112: Negative or not required by law. Electronically signed by: Angelo Ponce M.D. 08/16/2021 3:27 PM
--- NOTE | 2021-08-18 13:37 | Discharge Summary ---
Date of Service August 18, 2021 Admission HPI Per Admitting Provider This is a 56-year-old female presents with current persistent back and bilateral leg pain. Full course of nonoperative care she is here for surgical invention. Principal Diagnosis Lumbar spinal stenosis with neurogenic claudication Discharge Data Allergies Allergy/AdvReac Type Severity Reaction Status Date / Time erythromycin base Allergy Mild rash Verified 08/16/21 08:55 Iodinated Contrast Media Allergy Mild Hives Verified 08/16/21 08:55 ciprofloxacin [From Cipro] Allergy Unknown Hives Verified 08/16/21 08:55 NSAIDS (Non-Steroidal Allergy Unknown STOMACH Verified 08/16/21 08:55 Anti-Inflamma ISSUES Consultations 08/16/21 14:17 Consult Hospitalist Routine Procedures Performed Operation Date: 08/16/21 09:55 Actual Procedures p L4-L5 Decompression Fusion Spinal Cord Monitoring(Not Applicable) - Andres Elam DO Ordered Studies 08/16/21 09:55 FL lumbar spine 2-3V Routine Hospital Course (1) Neurogenic claudication due to lumbar spinal stenosis: Patient underwent lumbar decompression tolerated this well was taken to orthopedic for postop labor postop day 1 she was up and ambulating present postop day #2. Pain well controlled. Excellent strength testing. LETTY drain decreasing appropriately. Subsequent discharge home. Discharge orders instructions from the chart for further review. Total Time Total Time Spent Total Time Spent (In Minutes): 20 minutes Discharge Plan Discharge Items Patient Disposition: Home - Self-Care Reason For Visit: Spinal Stenosis, Lumbar Region without Neurogenic Discharge Diagnosis: Lumbar spinal stenosis with neurogenic claudication Activity: As commented below Non-emergency contact: Primary Care Provider Call non-emergency contact if: you have any medication questions Follow-up/Referrals: Nerissa Justin PA-C [Primary Care Provider] - (Date & Time 08/22/2021 11:00 AM Provider Azar Barry MD [facility] ) Diet: Regular Addtl Attending Provider Instructions: ACTIVITY RECOMMENDATIONS: SELF CARE INSTRUCTIONS AFTER THORACIC/LUMBAR FUSIONS 1. You may walk to your tolerance. It is good exercise for your legs and back. Expect some back and intermittent leg aches and pains. 2. You may perform "counter-top" level activities (make a sandwich, audra with a project, etc.). 3. No bending or lifting of more than 10 pounds or back twisting of any nature (roll like a log when turning in bed). 4. You may ride in a car for 20-30 minutes at a time. No driving until after your first visit with your doctor. 5. Frequent changes of position and restricting sitting to 30 minutes at a time will help limit the amount of back spasms and stiffness you may experience. 6. You may discontinue the use of ambulatory aids (cane, crutches, etc.) once your strength and confidence allow. 7. You may geothermal operating engineer the shower and let water strike your incision when you arrive home at least once daily. Do not take a tub bath, sit in a hot tub or go into a swimming pool until after your first recheck in the office. SPECIAL CARE INSTRUCTIONS: VERY IMPORTANT TO READ AND REVIEW A. Your surgical incision has been closed with a cosmetic suture under the skin that will dissolve in about 6 weeks. In 14 days, you can use a pair of clean scissors and cut the suture that is left outside of the skin at the ends of your incision. 1. The small skin tapes can be removed 7 days after surgery if they have not fallen off by that point. 2. You may keep the wound open to air as much as possible to promote healing after post-op day number 5 unless told otherwise by your doctor. 3. If you think the wound looks like it is becoming infected (redness or worsening drainage) and/or you are experiencing fever, chill or worsening back pain and muscle spasms, contact the office so that we may evaluate you as soon as possible. B. Complications are uncommon, but please contact us if you have any signs or symptoms of: 1. wound infection (fever higher than 102.5 degrees F, redness, separation of wound, drainage, or increasing pain from the incision) 2. blood clots in legs (pain, swelling, redness and warmth in legs) 3. urinary tract infection (fever higher than 102.5 degrees F, burning upon urination or increased frequency of urination) 4. nerve problems (inability to walk on your toes or heels, numbness, loss of bowel or bladder control) 5. any other symptoms that concern you C. Please call the office at if you have any concerns or questions about your operation or recovery. D. No smoking! Smoking drastically decreases the chance of a solid fusion. E. Do not take any anti-inflammatory medications (Indocin, Advil, Motrin, Aspirin, Naprosyn, etc.) as these may inhibit the chance of a solid fusion. Tylenol is okay to take for pain. MANAGING PAIN AFTER SPINAL SURGERY 1. Narcotic medication is intended for short-term use and will be provided for surgical pain. Surgical pain usually lasts for a period of 4-6 weeks. Narcotic medication includes Percocet, Vicodin, Darvocet, Tylenol #3 or Lortab. 2. Longer-term pain is more appropriately treated with non-narcotic medication such as Tylenol ES. 3. Muscle spasm is not appropriately treated with narcotics. Muscle relaxers such as Soma, Flexeril or Skelaxin can be used along with Tylenol ES. 4. Remember that we all live with some "aches and pains". This is not unusual or uncommon after an injury or as we get older. a. Back pain is expected and may include muscle spasms for 4 to 6 weeks after surgery. The pain should gradually improve. If the pain worsens for no apparent reason, please contact the office. b. Intermittent leg pain may also be experienced and should not be concerned about unless it worsens for no apparent reason. If so, please contact the office. 5. We will provide appropriate medication within the normal guidelines of their prescribed use. We will also be very cautious and aware of potential abuse and extended duration of patients' medication needs. a. Pain medications are for your comfort and to assist with sleep and rest so that the tissue can heal. They are not provided in order to return to normal activity and should not be used through the day. To do so or worsening pain at night can result from ongoing tissue damage and development of tolerance to the prescribed medicine. 6. Please allow 2-3 days to process refills. Prescriptions will not be mailed but must be picked up at the office. FOLLOW UP VISIT: Keep your scheduled follow-up appointment. Any questions, please call the office at . Pending Studies at Discharge: No Stand-Alone Forms: [employer], Smoking Cessation Medications and DC Order Prescriptions: New tramadol 50 mg tablet 50 mg PO Q6H PRN (Reason: pain, moderate) Qty: 30 RF: 0 oxycodone 5 mg tablet 5 mg PO Q6H PRN (Reason: pain, severe) Qty: 30 RF: 0 Continued multivitamin Tablet 1 tab PO QAM RF: 0 famotidine 20 mg Tablet 20 mg PO QAM RF: 0 ascorbic acid (vitamin C) [Vitamin C] 250 mg Tablet 250 mg PO QAM RF: 0 baclofen 10 mg Tablet 10 mg PO HS RF: 0 omeprazole 20 mg Capsule,Delayed Release(Dr/Ec) 20 mg PO DAILY PRN (Reason: Acid Reflux) RF: 0 topiramate [Topamax] 100 mg Tablet 150 mg PO QAM RF: 0 cholecalciferol (vitamin D3) [Vitamin D3] 25 mcg (1,000 unit) Capsule 25 mcg PO HS RF: 0 coQ10 (ubiquinol) 200 mg Capsule 200 mg PO QAM RF: 0 melatonin 5 mg Capsule 5 mg PO HS RF: 0 oxycodone 10 mg Tablet 10 mg PO Q8H PRN (Reason: Pain) RF: 0 ibuprofen 200 mg Capsule 400 - 600 mg PO Q6H PRN (Reason: Pain) RF: 0 acetaminophen 500 mg Capsule 1,000 mg PO Q6H PRN (Reason: Pain) RF: 0 Discharge Orders: Discharge Order (Routine); Ordered 08/18/21 Ordered By: Andres Thomas/Other Patient Handouts: Managing Post-Op Pain at Home ... Admission Data Admit Date/Time: 08/16/21 11:52 Attending Provider: Andres Elam Admit Provider: Andres Elam Primary Care Provider: Nerissa Justin Other Providers: Leigh Escobar ; Petty Garcia Other Interventions: Discharge Summary Assessment (RN) Last Done: 08/18/21 11:20
== END 2021-08-18 13:25 | disposition home or self-care (01) | DRG 455 ==
LOC: ASU 08:27 → 3E 11:52